=== PATIENT | female | born 1995 | race Caucasian/White ===

== ENCOUNTER 2023-05-24 18:15 | Emergency (ER) | payer SELFPAY ==
[~2023-05-24] VITALS: Ht 162.6 cm; Wt 60.0 kg
[2023-05-24 18:31] VITALS: O2SAT 100
[2023-05-24] MEDS ORDERED: SODIUM CHLORIDE 0.9% 1,000 ML IV ONE ×2 (18:45→20:00)
[2023-05-24] MEDS ORDERED: PROCHLORPERAZINE 10MG/2ML VIAL IV STA (20:00)
[2023-05-24] MEDS ORDERED: DIPHENHYDRAMINE 50MG/ML VIAL IV ONE (20:00)
[2023-05-24 20:13] LABS: BASOPHILS % 0.3 % (0.0-2.0); EOSINOPHILS % 0.5 % (0.0-5.0); HEMATOCRIT. 38.9 % (36.0-48.0); LYMPHOCYTES % 17.8 % (20.0-50.0); MEAN CORPUSCULAR HEMOGLOBIN 28.7 pg (28.0-32.0); MEAN CORPUSCULAR HGB CONC 33.4 g/dL (31.0-37.0); MEAN CORPUSCULAR VOLUME 85.8 fL (81.0-99.0); MEAN PLATELET VOLUME 9.8 fl (7.4-10.4); MONOCYTES % 7.3 % (2.0-8.0); NEUTROPHILS % 74.1 % (40.0-76.0); PLATELET 245 x1000/uL (130-400); RED BLOOD CELL COUNT 4.54 mill/uL (4.2-5.4); RED CELL DISTRIBUTION WIDTH 14.2 % (11.6-14.6)
[2023-05-24 20:18] LABS: CHLORIDE 105 mEq/L (98-107); INDEX HEMOLYSI 1 (1-3); INDEX ICTERIC 1 (1-4); INDEX LIPEMIC 1 (1-3); POTASSIUM 3.1 mEq/L (3.5-5.1); SODIUM 138 mEq/L (136-145)
[2023-05-24 20:20] LABS: INR 1.1; PROTHROMBIN TIME 11.7 sec (9.6-11.0)
[2023-05-24 20:21] LABS: BG BASE EXCESS 1.2 mmol/L (-2.0-2.0); BG CARBOXYHEMOGLOBIN 0.3 % (0.5-1.5); BG HCO3 ACT 21.6 mmol/L (22.0-26.0); BG METHEMOGLOBIN 0.3 % (0.0-1.5); BG OXYHEMOGLOBIN 98.4 % (94.0-97.0); BG PCO2 23.9 mmHg (35.0-45.0); BG PH 7.573 (7.350-7.450); BG PO2 121.2 mmHg (75.0-100.0); BG SAMPLE SITE RIGHT RADIAL; BG TOTAL HEMOGLOBIN 13.7 g/dL (12.0-18.0); BG VENT MODE ROOM AIR
[2023-05-24 20:26] LABS: ALANINE AMINOTRANSFERASE 19 IU/L (13-61); ALBUMIN 4.2 g/dL (3.4-5.0); ASPARTATE AMINOTRANSFERASE 7 IU/L (15-37); BILIRUBIN TOTAL 0.5 mg/dL (0.1-1.0); CALCIUM 8.6 mg/dL (8.5-10.1); CARBON DIOXIDE 23 mEq/L (21-32); CREATINE KINASE 40 IU/L (26-192); CREATININE 0.6 mg/dL (0.6-1.3); ETHANOL BLOOD < 10 mg/dL (<10); GLUCOSE 93 mg/dL (70-105); PROTEIN TOTAL 7.6 g/dL (6.0-8.3); UREA NITROGEN BLOOD 9 mg/dL (7-21)
[2023-05-24 20:32] LABS: HCG SCREEN NEGATIVE
[2023-05-24 21:02] LABS: LACTIC ACID 2.5 mmol/L (0.4-2.0)
[2023-05-24] MEDS ORDERED: IOHEXOL-350 100 ML BOTTLE ONE (21:07)
[2023-05-24] MEDS ORDERED: ASPIRIN 81MG TABLET PO ONE (22:15)
[2023-05-24] MEDS ORDERED: SODIUM CHLORIDE 0.9% 1000ML BAG (SEPSIS BOLUS) IV ONE (22:15)
[2023-05-24] MEDS ORDERED: CEFTRIAXONE 1GM PREMIX 50 ML IV ONE (22:15)
[2023-05-24 23:55] VITALS: BP 111/52; PULSE 103; RESP 12; TEMP 98
== END 2023-05-25 00:14 | disposition left against medical advice (07) ==
LOC: ER 18:15
DX: R51.9 Headache, unspecified (principal)
CPT/HCPCS: 80053; 80320; 82550; 84703; 83605; 85025; 85610; 87040; 36415; 71045; 70496; 70498; 70450; 82805; 82375; 93005; 96361; 96365; 96375; 99285; 36600; Q9967; Z7610 ×7; J0696; J1200; J0780; J7030; G0480

== ENCOUNTER 2024-01-11 01:39 | Emergency (ER) | payer OTHER ==
[~2024-01-11] VITALS: Ht 160 cm; Wt 49.0 kg
[2024-01-11 01:40] VITALS: BP 117/53; PULSE 110; RESP 18; TEMP 98.1; O2SAT 100
[2024-01-11 02:23] LABS: HEMATOCRIT. 43.5 % (36.0-48.0); HEMOGLOBIN. 14.6 g/dL (12.0-16.0); MEAN CORPUSCULAR HEMOGLOBIN 28.2 pg (28.0-32.0); MEAN CORPUSCULAR HGB CONC 33.6 g/dL (31.0-37.0); MEAN CORPUSCULAR VOLUME 83.8 fL (81.0-99.0); MEAN PLATELET VOLUME 9.2 fl (7.4-10.4); PLATELET 236 x1000/uL (130-400); RED CELL DISTRIBUTION WIDTH 15.1 % (11.6-14.6); WHITE BLOOD COUNT 11.7 x1000/uL (4.5-11.0)
[2024-01-11 02:26] LABS: CHLORIDE 106 mEq/L (98-107); SODIUM 138 mEq/L (136-145)
[2024-01-11 02:27] LABS: CALCIUM 9.5 mg/dL (8.7-10.4); CARBON DIOXIDE 23 mEq/L (21-32)
[2024-01-11 02:30] LABS: DIFFERENTIAL COMMENT 1
[2024-01-11 02:32] LABS: CREATININE 0.7 mg/dL (0.6-1.0); GLUCOSE 107 mg/dL (70-105); UREA NITROGEN BLOOD 6 mg/dL (9-23)
[2024-01-11 02:38] LABS: HCG SCREEN NEGATIVE
[2024-01-11 08:02] LABS: PLATELET ESTIMATE NORMAL
== END 2024-01-11 03:30 | disposition left against medical advice (07) ==
LOC: ER 01:39
DX: F41.9 Anxiety disorder, unspecified (principal); Z53.21 Procedure and treatment not carried out due to patient leaving prior to being seen by health care provider
CPT/HCPCS: 36415; 80048; 83735; 84703; 85025